=== PATIENT | female | born 1990 | race African-American/Black ===

== ENCOUNTER 2020-12-03 21:18 | Emergency (ER) | payer MEDICAID, OTHER ==
[~2020-12-03] VITALS: Ht 154.9 cm; Wt 54.4 kg
[2020-12-03 23:00] LABS: Urine Bacteria NONE SEEN /hpf (None Seen); Urine Blood 1+ /uL (Negative); Urine Hyaline Cast FEW /lpf (0 - 2); Urine Mucus MANY (None Seen); Urine Specific Gravity 1.034 (1.001-1.035); Urine WBC 43 /hpf (0 - 5)
[2020-12-03 23:40] LABS: Basophils # (auto) 0 10 ^3/uL (0-0.2); Basophils % (auto) 0.5 % (0.0-2.0); Eosinophils # (auto) 0 10 ^3/uL (0-0.8); Eosinophils % (auto) 0.1 % (0.0-7.0); Hematocrit 37.1 % (36.0-46.0); Hemoglobin 12.8 g/dL (12.2-16.2); Lymphocytes # (auto) 1.5 10 ^3/uL (0.4-5.4); Lymphocytes % (auto) 20.7 % (10.0-50.0); Mean Corpuscular Hemoglobin 31.9 pg (28.0-32.0); Mean Corpuscular Hgb Conc. 34.6 g/dL (32.0-36.0); Mean Corpuscular Volume 92.3 fL (80.0-100.0); Monocytes # (auto) 0.4 10 ^3/uL (0-1.3); Monocytes % (auto) 5.6 % (0.0-12.0); Neutrophils # (auto) 5.2 10 ^3/uL (1.6-8.6); Neutrophils % (auto) 73.1 % (37.0-80.0); Red Blood Cells 4.02 10^6/uL (4.0-5.20); Red Cell Distribution Width 13.5 % (11.8-14.3); White Blood Cell 7.1 10^3/uL (4.4-10.8)
[2020-12-04 00:01] LABS: Calcium 9.5 mg/dL (8.5-10.1); Potassium 3.4 mmol/L (3.5-5.1)
[2020-12-04 00:07] LABS: Albumin 3.8 g/dL (3.4-5.0); BUN/Creatinine Ratio 24.6; Bilirubin, Total 1.3 mg/dL (0.2-1.0); Total Protein 8.2 g/dL (6.4-8.2)
[2020-12-04] MEDS ORDERED: ACETAMINOPHEN 500 MG TAB PO ONE (04:15)
[2020-12-04 04:32] VITALS: BP 104/67
== END 2020-12-04 05:42 | disposition home or self-care (01) ==
LOC: ER 21:20
DX: O46.91 Antepartum hemorrhage, unspecified, first trimester (principal); O26.891 Other specified pregnancy related conditions, first trimester; R10.9 Unspecified abdominal pain; Z3A.01 Less than 8 weeks gestation of pregnancy
CPT/HCPCS: 36415; 76801; 80053; 81001; 84702; 85025